=== PATIENT | male | born 1990 ===

== ENCOUNTER 2023-06-10 02:57 | Emergency (ER) | payer BC ==
[2023-06-10 04:34] LABS: Bilirubin Neg (Negative); Blood, Urine 10 (Negative); Clarity Clear (Clear); Glucose, Urine (Dipstick) Normal (Negative); Ketone, Urine Negative (Negative); Leukocyte Negative (Negative); Nitrite Negative (Negative); Protein, Urine (Dipstick) Negative (Neg-Trace); Urobilinogen Normal mg/dL (Less than 2)
[2023-06-10 05:02] LABS: Bacteria/HPF None Seen HPF (None Seen); CAUTI Indications for Culture Pelvic or flank pain; RBC/HPF 0-3 HPF (0-3); Squamous Epithelial 0-3 HPF (0-3); WBC/HPF None Seen HPF (0-3)
[2023-06-10 05:03] LABS: Urine Culture Reflex No No
[2023-06-11 11:42] LABS: Chlam.trachomatis by PCR,Urine Not Detected (NotDetected); GC N.gonorrhoeae PCR,UrineVOID Not Detected (NotDetected)
== END 2023-06-10 05:14 | disposition home or self-care (01) ==
LOC: CSHERS 02:57
DX: N50.811 Right testicular pain (principal)
CPT/HCPCS: 76870; 81001; 87491; 87591; 93976